=== PATIENT | female | born 1995 ===

== ENCOUNTER → 2023-01-29 | Outpatient (CLI) | payer OTHER ==
[2023-01-29 15:30] LABS: Candida species (DNA Probe) Positive (NEGATIVE); G. vaginalis (DNA Probe) Negative (NEGATIVE); T. vaginalis (DNA Probe) Negative (NEGATIVE)
[2023-01-31 00:08] LABS: HIV AB/P24 AG SCREEN Non Reactive (Non Reactive)
[2023-01-31 02:08] LABS: CHLAMYDIA TRACHOMATIS, NAA Negative (Negative)
[2023-02-01 15:09] LABS: HBSAG SCREEN Negative (Negative); HCV AB Non Reactive (Non Reactive); HEP A AB, IGM Negative (Negative); HEP B CORE AB, TOT Negative (Negative)
== END ==
LOC: LAB 11:20 → LAB SHORT 11:20
PROVIDERS: Chiropractor
DX: N89.8 Other specified noninflammatory disorders of vagina (principal); R82.90 Unspecified abnormal findings in urine; Z72.51 High risk heterosexual behavior
CPT/HCPCS: 86592; 86704; 86708; 86803; 87086; 87340; 87389; 87480; 87491; 87510; 87591; 87660